=== PATIENT | male | born 1975 | race African-American/Black ===

== ENCOUNTER 2024-09-11 23:13 | Emergency (ER) | payer SELFPAY ==
[2024-09-11 23:17] VITALS: BP 156/84
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
[2024-09-12] MEDS: AUGMENTIN 875 MG/125 MG 1 TABLET PO (01:05)
[2024-09-12 01:06] VITALS: BP 145/73
== END 2024-09-12 01:10 | disposition home or self-care (01) ==
LOC: EMR 23:13
PROVIDERS: EMERGENCY PHYSICIAN Student in an Organized Health Care Education/Training Program
DX: S61.255A Open bite of left ring finger without damage to nail, initial encounter (principal); Y04.1XXA Assault by human bite, initial encounter; Y99.0 Civilian activity done for income or pay
CPT/HCPCS: 99283